=== PATIENT | female | born 1970 | race Two or more races ===

== ENCOUNTER 2020-06-20 08:00 | Day surgery (SDC) | payer OTHER ==
[2020-06-20] MEDS ORDERED: MORGIDOX100 MG PO (18:44)
[2020-06-20] MEDS ORDERED: Tylenol #3 PO (18:44)
== END 2020-06-20 21:55 | disposition home or self-care (01) ==
LOC: CIR.AMB 08:00
PROVIDERS: ATTEND Obstetrics & Gynecology
DX: D25.0 Submucous leiomyoma of uterus (principal); N84.0 Polyp of corpus uteri; Z20.828 Contact with and (suspected) exposure to other viral communicable diseases